=== PATIENT | male | born 1965 | race Caucasian/White ===

== ENCOUNTER → 2017-11-02 | Outpatient (CLI) | payer BC ==
--- NOTE | 2017-11-02 22:17 | RADIOLOGY IMAGING REPORT ---
FACILITY: [facility] [place] PATIENT NAME: Neo Albright : 1965 MR: [id number] V: [id number] EXAM DATE: ORDERING PHYSICIAN: KATIE SCHUSTER TECHNOLOGIST: Location: [facility] [place] Patient: Neo Albright : 1965 Visit/Account:[id number] Date of Sevice: 11/02/2017 EXAMINATION: CTA of the chest with IV contrast HISTORY: Essential hypertension. TECHNIQUE: Thin axial CT images of the chest were obtained with IV contrast during maximal arterial o pacification. Reconstruction of the source data set includes multiplanar 2D sagittal and coronal imag es, and 3D coronal thin slab MIP images. [employer] images have been stored on PACS. One of the following dose optimization techniques was utilized in the performance of this exam: Autom ated exposure control; adjustment of the mA and/or kV according to the patient's size; or use of an i terative reconstruction technique. Specific details can be referenced in the facility's radiology C T exam operational policy. Contrast: 75 mL of IV [id number]-[id number]. COMPARISON: 06/05/2016. FINDINGS: Angiographic findings: Thoracic aorta: Aneurysmal dilatation of the ascending thoracic aorta. Allowing for motion artifact o n the prior exam, this appears grossly stable. No aortic dissection. Aortic measurements are as follo ws: Aortic annulus: 2.9 cm Sinuses of Valsalva: 4.8 cm Sinotubular junction: 3.9 cm Mid ascending aorta: 4.5 cm Proximal aortic arch: 3.5 cm Distal aortic arch: 2.4 cm Proximal descending thoracic aorta: 2.2 cm Distal descending thoracic aorta: 2.1 cm Origins of the great vessels are patent and normal in caliber along the aortic arch. There is mild at herosclerotic plaque along the arch. Pulmonary arteries: Exam was tailored for evaluation of the aorta. The pulmonary arteries are poorly opacified. Heart: Normal heart size. No pericardial effusion. Abdominal aorta: The abdominal aorta is imaged to just below the origin of the SMA. The upper abdomin al aorta is patent and normal in caliber. The celiac artery and SMA are patent and normal in caliber. Nonvascular findings: Lungs and pleura: Small calcified granulomas in both lungs. No focal consolidation or pleural effusi on. The central airways are patent. Mediastinum and christine: Borderline enlarged mediastinal and hilar lymph nodes appear stable. Bones: Negative. Chest wall: Negative. Lower neck: Negative. Upper abdomen: Negative. IMPRESSION: 1. Stable aneurysmal dilatation of the ascending thoracic aorta, allowing for motion artifact on the prior exam. The aorta measures up to 4.5 cm along the mid ascending aorta. 2. No acute findings in the chest. Report Dictated By: Brian Chavez MD at 11/02/2017 10:01 PM Report E-Signed By: Brian Chavez MD at 11/02/2017 10:12 PM WSN:[id number]
== END ==
LOC: CT 05:01
PROVIDERS: ATTEND Internal Medicine
DX: I71.4 Abdominal aortic aneurysm, without rupture (principal); R91.8 Other nonspecific abnormal finding of lung field
CPT/HCPCS: 36415; 71275; 82565